=== PATIENT | male | born 1995 | race Caucasian/White ===

== ENCOUNTER → 2021-08-06 | Outpatient (CLI) | payer OTHER ==
--- NOTE | 2021-08-06 13:34 | REPVR ---
PROCEDURE INFORMATION: Exam: CT Maxillofacial Without Contrast Exam date and time: 08/06/2021 1:07 PM Age: 26 years old Clinical indication: Other: Nasal polyp TECHNIQUE: Imaging protocol: Computed tomography images of the face without contrast. Radiation optimization: All CT scans at this facility use at least one of these dose optimization techniques: automated exposure control; mA and/or kV adjustment per patient size (includes targeted exams where dose is matched to clinical indication); or iterative reconstruction. COMPARISON: No relevant prior studies available. FINDINGS: Orbital cavity: Examination reveals bilateral globes to be normal in size and morphology. The optic nerves are normal in thickness and symmetric bilaterally. The extraocular muscles are normal in thickness . The retroconal fat has a normal appearance. The lacrimal glands appear normal bilaterally. Bones/joints: The bony orbital vasquez are intact. No fractures are identified. The visualized osseous structures are unremarkable. No acute fracture or dislocation is seen. Paranasal sinuses: Examination reveals polypoid mucosal thickening involving bilateral maxillary and ethmoid sinuses with mucosal obstruction of bilateral ostiomeatal complex. There is mild mucosal thickening in bilateral frontal and sphenoid sinuses. Soft tissues: Unremarkable. Brain: The visualized brain parenchyma is unremarkable. Nasal cavity: There is polypoid mucosal thickening involving the nasal turbinates bilaterally causing significant narrowing of the nasal airway. These findings are consistent with sinonasal polyposis. There is mild deviation of the nasal septum towards the right. IMPRESSION: 1. Examination reveals polypoid mucosal thickening involving bilateral maxillary and ethmoid sinuses with mucosal obstruction of bilateral ostiomeatal complex. There is mild mucosal thickening in bilateral frontal and sphenoid sinuses. 2. There is polypoid mucosal thickening involving the nasal turbinates bilaterally causing significant narrowing of the nasal airway. These findings are consistent with sinonasal polyposis. There is mild deviation of the nasal septum towards the right. Electronically signed by: Lb Anthony On 08/06/2021 13:33:47 PM
== END ==
LOC: M RAD 13:01
PROVIDERS: ATTEND Otolaryngology
DX: J33.9 Nasal polyp, unspecified (principal)

== ENCOUNTER 2021-10-07 09:25 | Day surgery (SDC) | payer OTHER ==
[~2021-10-07] VITALS: Ht 182.9 cm; Wt 87.0 kg
[~2021-10-07 09:25] MED LIST: LR 1,000 ML IV ONE
--- OUTSIDE RECORDS SUMMARY | 2021-10-07 09:29 | CCD | Continuity of Care Document ---
Author Author Papa SANDOVAL MD Organization Unknown Address [address] [place] [address] [address] [place] [address] Phone [phone] Care Team Providers Care Scientific Investigator Name Role Phone Jonel Gomez P.A.-C. AUTM [phone] Bairon Dixon RPA-C AUTM [phone] Problems Active Problems Provider Date Impacted cerumen Frank Sandoval MD Onset: 07/25/2021 Polyp of nasal cavity and/or nasal sinus Frank Sandoval MD Onset: 07/25/2021 Social History Type Date Description Comments Sex Unknown ETOH Use Occasionally consumes alcohol Tobacco Use Start: Unknown Non Smoker Recreational Drug Use Never Used Drugs Allergies, Adverse Reactions, Alerts Description No Known Drug Allergies Medications Active Medications SIG Qnty Indications Ordering Provide r Date Zyrtec Allergy 10mg Capsules 1 by mouth every day Unknown Fluticasone Propionate 50mcg/Act Suspension 2 sprays to each nostril daily Unknown Immunizations Description No Information Available Vital Signs Date Vital Result Comment 07/25/2021 11:21am BP Systolic 114 mmHg BP Diastolic 80 mmHg Heart Rate 62 /min O2 % BldC Oximetry 98 % Height 72 inches 6'0" Weight 199.00 lb BMI (Body Mass Index) 27.0 kg/m2 [place] Body Weight 178 lb Weight 90.266 kg BSA (Body Surface Area) 2.13 m2 Results Description No Information Available Procedures Date Code Description Status 07/25/2021 27330 Office/Outpatient New Low MDM 30 -44 Minutes Completed 07/25/2021 11281 Remove Impacted Cerumen Complete d Medical Devices Description No Information Available Encounters Type Date Location Provider Dx Diagnosis Office Visit 07/25/2021 11:15a [facility] Camila Cohen J33.9 Nasal polyp, unspecified H61.23 Impacted cerumen, bilateral Assessments Date Code Description Provider 07/25/2021 J33.9 Nasal polyp, unspecified Frank rush MD 07/25/2021 H61.23 Impacted cerumen, bilateral Nino moreno Sandoval MD Plan of Treatment Future Appointment(s):* 08/14/2021 11:00 am - Frank Sandoval MD at [facility] Functional Status Description No Information Available Mental Status Description No Information Available Referrals Refer to Dr Reason for Referral Status Appt Date Frank Sandoval M.D. NASAL CONGESTION Scheduled [address] [address] [phone]
--- OUTSIDE RECORDS SUMMARY | 2021-10-07 09:29 | CCD | Continuity of Care Document ---
Author Author Papa CARDENAS.N .PVilma Organization Unknown Address [address], [address] [place] [address] Phone [phone] Care Team Providers Care Binder Operator Name Role Phone [facility] [phone] Problems Description No Information Available Social History Type Date Description Comments Sex Unknown Tobacco Use Start: Unknown Never Smoked Cigarettes ETOH Use Occasionally consumes alcohol Sun Exposure excessive amount of sun exposure Sun Exposure Has never used tanning bed Sun Exposure Has never experienced blistering from sunburns Sun Exposure Does not use sunscreen Allergies and adverse reactions Description No Known Drug Allergies Medications Description No Active Medications Medications Administered in Office Medication SIG Qnty Indications Ordering Provider Date Injection Intralesional Up To 7 Injection RAGHAV Mejia Injection Intralesional Up To 7 Injection RAGHAV Mejia Injection Intralesional Up To 7 Injection Veena CurrieNVilmaPVilma Immunizations Description No Information Available Vital Signs Date Vital Result Comment 09/18/2021 9:47am BP Systolic 115 mmHg BP Diastolic 65 mmHg O2 % BldC Oximetry 98 % Heart Rate 75 /min 08/07/2021 10:21am BP Systolic 115 mmHg BP Diastolic 73 mmHg O2 % BldC Oximetry 98 % Heart Rate 71 /min Weight 192.00 lb Respiratory Rate 16 /min Height 72 inches 6'0" BMI (Body Mass Index) 26.0 kg/m2 Results Description No Information Available Procedures Date Code Description Status 09/18/2021 60008 Office/Outpatient Established Lo w MDM 20-29 Min Completed 08/07/2021 99266 Office/Outpatient Established Mo d MDM 30-39 Min Completed 08/07/2021 70000 Injection Intralesional Up To 7 Completed 06/20/2021 25812 Office/Outpatient Established Mo d MDM 30-39 Min Completed 06/20/2021 05620 Injection Intralesional Up To 7 Completed 05/13/2021 53587 Office Consultation Level 4 Comp leted 05/13/2021 80873 Injection Intralesional Up To 7 Completed Medical Devices Description No Information Available Encounters Type Date Location Provider Dx Diagnosis Office Visit 09/18/2021 9:45a Main Office Kellie Dudley'travon, F.N.P. L63.8 Other alopecia areata Office Visit 08/07/2021 10:00a Main Office HEMALATHA MejiaP-C L63.8 Other alopecia areata Office Visit 06/20/2021 10:15a Main Office HEMALATHA MejiaP-C L63.8 Other alopecia areata Office Visit 05/13/2021 7:30a Main Office Kellie Dudley'travon, F.N.P. L63.9 Alopecia areata, unspecified L63.8 Other alopecia areata Assessments Date Code Description Provider 09/18/2021 L63.8 Other alopecia areata Kellie Dudley'travon, F.N.P. 08/07/2021 L63.8 Other alopecia areata Ivon Daniels, ENVIRONMENTAL CONSERVATION OFFICER-C 06/20/2021 L63.8 Other alopecia areata Ivon Daniels, ENVIRONMENTAL CONSERVATION OFFICER-C 05/13/2021 L63.9 Alopecia areata, unspecified Cat mai O'travon, F.N.P. 05/13/2021 L63.8 Other alopecia areata Kellie Octavia'travon, F.N.P. Plan of Treatment 09/18/2021 - Kellie O'travon, F.N.P.* L63.8 Other alopecia areata* Comments:* Doing wellContinue to monitor.Call with any problems. * Follow up:* PRN Functional Status Description No Information Available Mental Status Description No Information Available Referrals Refer to Dr Reason for Referral Status Appt Date Gladis Cowan NP [address] [place] [address] [phone]
--- OUTSIDE RECORDS SUMMARY | 2021-10-07 09:29 | CCD ---
Author Author [facility] Organization [facility] Address Unknown Phone Unavailable Care Team Providers Care Rail Layer Name Role Phone Gates, Yesenia RECORD PRESS TENDER Unavailable Unavailable Gates, Yesenia RECORD PRESS TENDER Unavailable Unavailable Gates, Yesenia RECORD PRESS TENDER Unavailable Unavailable Gates, Yesenia RECORD PRESS TENDER Unavailable Unavailable Gates, Yesenia RECORD PRESS TENDER Unavailable Unavailable Gates, Yesenia RECORD PRESS TENDER Unavailable Unavailable Gates, Yesenia RECORD PRESS TENDER Unavailable Unavailable Gates, Yesenia RECORD PRESS TENDER Unavailable Unavailable Gates, Yesenia RECORD PRESS TENDER Unavailable Unavailable Gates, Yesenia RECORD PRESS TENDER Unavailable Unavailable Gates, Yesenia RECORD PRESS TENDER Unavailable Unavailable Gates, Yesenia RECORD PRESS TENDER Unavailable Unavailable Gates, Yesenia RECORD PRESS TENDER Unavailable Unavailable Gates, Yesenia RECORD PRESS TENDER Unavailable Unavailable Gates, Yesenia RECORD PRESS TENDER Unavailable Unavailable Gates, Yesenia RECORD PRESS TENDER Unavailable Unavailable Gates, Yesenia RECORD PRESS TENDER Unavailable Unavailable Gates, Yesenia RECORD PRESS TENDER Unavailable Unavailable Gates, Yesenia RECORD PRESS TENDER Unavailable Unavailable Gates, Yesenia RECORD PRESS TENDER Unavailable Unavailable Gates, Yesenia RECORD PRESS TENDER Unavailable Unavailable Gates, Yesenia RECORD PRESS TENDER Unavailable Unavailable Gates, Yesenia RECORD PRESS TENDER Unavailable Unavailable Gates, Yesenia RECORD PRESS TENDER Unavailable Unavailable Gates, Yesenia RECORD PRESS TENDER Unavailable Unavailable Gates, Yesenia RECORD PRESS TENDER Unavailable Unavailable Gates, Yesenia RECORD PRESS TENDER Unavailable Unavailable Gates, Yesenia RECORD PRESS TENDER Unavailable Unavailable Gates, Yesenia RECORD PRESS TENDER Unavailable Unavailable Gates, Yesenia RECORD PRESS TENDER Unavailable Unavailable Gates, Yesenia RECORD PRESS TENDER Unavailable Unavailable Gates, Yesenia RECORD PRESS TENDER Unavailable Unavailable Gates, Yesenia RECORD PRESS TENDER Unavailable Unavailable Gates, Yesenia RECORD PRESS TENDER Unavailable Unavailable Gates, Yesenia RECORD PRESS TENDER Unavailable Unavailable Gates, Yesenia RECORD PRESS TENDER Unavailable Unavailable Jaime, Valdo Marie PH.D., M.D. Unavailable Unavailable Jaime, Valdo Marie PH.D., M.D. Unavailable Unavailable Jaime, Valdo Marie PH.D., M.D. Unavailable Unavailable Jaime, Valdo Marie PH.D., M.D. Unavailable Unavailable Jaime, Valdo Marie PH.D., M.D. Unavailable Unavailable Jaime, Valdo Marie PH.D., M.D. Unavailable Unavailable Jaime, Valdo Marie PH.D., M.D. Unavailable Unavailable Jaime, Valdo Marie PH.D., M.D. Unavailable Unavailable Jaime, Valdo Marie PH.D., M.D. Unavailable Unavailable Jaime, Valdo Marie PH.D., M.D. Unavailable Unavailable Jaime, Valdo Marie PH.D., M.D. Unavailable Unavailable Jaime, Valdo Marie PH.D., M.D. Unavailable Unavailable Jaime, Valdo Marie PH.D., M.D. Unavailable Unavailable Jaime, Valdo Marie PH.D., M.D. Unavailable Unavailable Jaime, Valdo Marie PH.D., M.D. Unavailable Unavailable Jaime, Valdo Mraie PH.D., M.D. Unavailable Unavailable Jaime, Valdo Marie PH.D., M.D. Unavailable Unavailable Jaime, Valdo Marie PH.D., M.D. Unavailable Unavailable Jaime, Valdo Marie PH.D., M.D. Unavailable Unavailable Jaime, Valdo Marie PH.D., M.D. Unavailable Unavailable Jaime, Valdo Marie PH.D., M.D. Unavailable Unavailable Jaime, Valdo Marie PH.D., M.D. Unavailable Unavailable Jaime, Valdo Marie PH.D., M.D. Unavailable Unavailable Jaime, Valdo Marie PH.D., M.D. Unavailable Unavailable Jaime, Valdo Marie PH.D., M.D. Unavailable Unavailable Jaime, C Frank PH.D., M.D. Unavailable Unavailable Jaime, C Frank PH.D., M.D. Unavailable Unavailable Jaime, C Frank PH.D., M.D. Unavailable Unavailable Jaime, C Frank PH.D., M.D. Unavailable Unavailable Jaime, C Frank PH.D., M.D. Unavailable Unavailable Jaime, C Frank PH.D., M.D. Unavailable Unavailable Jaime, C Frank PH.D., M.D. Unavailable Unavailable Jaime, C Frank PH.D., M.D. Unavailable Unavailable Jaime, C Frank PH.D., M.D. Unavailable Unavailable Jaime, C Frank PH.D., M.D. Unavailable Unavailable Jaime, C Frank PH.D., M.D. Unavailable Unavailable Jaime, C Frank PH.D., M.D. Unavailable Unavailable Jaime, C Frank PH.D., M.D. Unavailable Unavailable Jaime, C Frank PH.D., M.D. Unavailable Unavailable Jaime, C Frank PH.D., M.D. Unavailable Unavailable Jaime, C Frank PH.D., M.D. Unavailable Unavailable Jaime, C Frank PH.D., M.D. Unavailable Unavailable Jaime, C Frank PH.D., M.D. Unavailable Unavailable Jaime, C Frank PH.D., M.D. Unavailable Unavailable Jaime, C Frank PH.D., M.D. Unavailable Unavailable Jaime, C Frank PH.D., M.D. Unavailable Unavailable Jaime, C Frank PH.D., M.D. Unavailable Unavailable Jaime, C Frank PH.D., M.D. Unavailable Unavailable Jaime, C Frank PH.D., M.D. Unavailable Unavailable Jaime, C Frank PH.D., M.D. Unavailable Unavailable Jaime, C Frank PH.D., M.D. Unavailable Unavailable Jaime, C Frank PH.D., M.D. Unavailable Unavailable Jaime, C Frank PH.D., M.D. Unavailable Unavailable Jaime, C Frank PH.D., M.D. Unavailable Unavailable Jaime, C Frank PH.D., M.D. Unavailable Unavailable Jaime, C Frank PH.D., M.D. Unavailable Unavailable Jaime, C Frank PH.D., M.D. Unavailable Unavailable Jaime, C Frank PH.D., M.D. Unavailable Unavailable Jaime, C Frank PH.D., M.D. Unavailable Unavailable Jaime, Valdo Marie PH.D., M.D. Unavailable Unavailable Jaime, Valdo Marie PH.D., M.D. Unavailable Unavailable Jaime, Valdo Marie PH.D., M.D. Unavailable Unavailable Jaime, Valdo Marie PH.D., M.D. Unavailable Unavailable Jaime, Valdo Marie PH.D., M.D. Unavailable Unavailable Jaime, Valdo Marie PH.D., M.D. Unavailable Unavailable Jaime, Valdo Marie PH.D., M.D. Unavailable Unavailable Jaime, Valdo Marie PH.D., M.D. Unavailable Unavailable Jaime, Valdo Marie PH.D., M.D. Unavailable Unavailable Jaime, Valdo Marie PH.D., M.D. Unavailable Unavailable Jaime, Valdo Marie PH.D., M.D. Unavailable Unavailable Jaime, Valdo Marie PH.D., M.D. Unavailable Unavailable Jaime, Valdo Marie PH.D., M.D. Unavailable Unavailable Jaime, Valdo Marie PH.D., M.D. Unavailable Unavailable Jaime, Valdo Marie PH.D., M.D. Unavailable Unavailable Jaime, Valdo Marie PH.D., M.D. Unavailable Unavailable Jaime, Valdo Marie PH.D., M.D. Unavailable Unavailable Jaime, Valdo Marie PH.D., M.D. Unavailable Unavailable Jaime, Valdo Marie PH.D., M.D. Unavailable Unavailable Jaime, Valdo Marie PH.D., M.D. Unavailable Unavailable Jaime, Valdo Marie PH.D., M.D. Unavailable Unavailable Jaime, Valdo Marie PH.D., M.D. Unavailable Unavailable Jaime, Valdo Marie PH.D., M.D. Unavailable Unavailable Hegard, Ivon RECORD PRESS TENDER Unavailable Unavailable Hegard, Ivon RECORD PRESS TENDER Unavailable Unavailable Hegard, Ivon RECORD PRESS TENDER Unavailable Unavailable Hegard, Ivon RECORD PRESS TENDER Unavailable Unavailable Hegard, Ivon RECORD PRESS TENDER Unavailable Unavailable Hegard, Ivon RECORD PRESS TENDER Unavailable Unavailable Hegard, Ivon RECORD PRESS TENDER Unavailable Unavailable Hegard, Ivon RECORD PRESS TENDER Unavailable Unavailable Hegard, Ivon RECORD PRESS TENDER Unavailable Unavailable Hegard, Ivon RECORD PRESS TENDER Unavailable Unavailable Hegard, Ivon RECORD PRESS TENDER Unavailable Unavailable Hegard, Ivon RECORD PRESS TENDER Unavailable Unavailable Hegard, Ivon RECORD PRESS TENDER Unavailable Unavailable Hegard, Ivon RECORD PRESS TENDER Unavailable Unavailable Hegard, Ivon RECORD PRESS TENDER Unavailable Unavailable Hegard, Ivon RECORD PRESS TENDER Unavailable Unavailable Hegard, Ivon RECORD PRESS TENDER Unavailable Unavailable Re-disclosure Warning The records that you are about to access may contain information from federally-assisted alcohol or drug abuse programs. If such information is present, then the following federally mandated warning applies: This information has been disclosed to you from records protected by federal confidentiality rules (42 CFR part 2). The federal rules prohibit you from making any further disclosure of this information unless further disclosure is expressly permitted by the written consent of the person to whom it pertains or as otherwise permitted by 42 CFR part 2. A general authorization for the release of medical or other information is NOT sufficient for this purpose. The Federal rules restrict any use of the information to criminally investigate or prosecute any alcohol or drug abuse patient.The records that you are about to access may contain highly sensitive health information, the redisclosure of which is protected by Article 27-F of the [facility] Public Health law. If you continue you may have access to information: Regarding HIV / AIDS; Provided by facilities licensed or operated by the [facility] Office of Mental Health; or Provided by the [facility] Office for People With Developmental Disabilities. If such information is present, then the following [facility] mandated warning applies: This information has been disclosed to you from confidential records which are protected by state law. State law prohibits you from making any further disclosure of this information without the specific written consent of the person to whom it pertains, or as otherwise permitted by law. Any unauthorized further disclosure in violation of state law may result in a fine or penitentiary sentence or both. A general authorization for the release of medical or other information is NOT sufficient authorization for further disc losure. Encounters Encounter Providers Location Date Indications Data Source(s ) Outpatient Attender: Frank Sandoval PH.D., MEma. Matthew/Pravin/Harinder jay/Trista 08/14/2021 11:00:00 AM EDT [facility] ([facility] [place]) Outpatient Attender: Ivon COLEMAN Main Office 0 08/07/2021 10:00:00 AM EDT [facility] Outpatient Attender: Frank Sandoval PH.Ayush., Camila.D. Matthew/Pravin/Harinder jay/Trista 07/25/2021 11:15:00 AM EDT [facility] ([facility] [place]) Outpatient Attender: Ivon Londonsher [facility] Main Office 0 06/20/2021 10:15:00 AM EDT [facility] ([facility]) Outpatient Attender: Kellie Matt [facility] Main Office 05/13/2021 07:30:00 AM EDT [facility] ([facility]) Immunizations Vaccine Date Status Description Data Source(s) COVID-19 VACCINE Pfizer 04/15/2021 12:00:00 AM EDT completed [id number] Vaccine Series Complete: NOThis Data was Submitted to [facility] [employer]. Medications Medication Brand Name Start Date Product Form Dose Route Admi nistrative Instructions Pharmacy Instructions Status Indications Reaction Description Data Source(s) Injection Intralesional Up To 7 08/07/2021 12:00:00 AM EDT completed [facility] ([facility]) Medication administered onsite Injection Intralesional Up To 7 06/20/2021 12:00:00 AM EDT completed [facility] ([facility]) Medication administered onsite Injection Intralesional Up To 7 05/13/2021 12:00:00 AM EDT completed [facility] ([facility]) Medication administered onsite Insurance Providers Payer name Policy type / Coverage type Policy ID Covered green party ID Covered green party's relationship to valle Policy Valle Plan Information [facility] [employer] [id number] Problems, Conditions, and Diagnoses Code Display Name Description Problem Type Effective Dates Data Source(s) J33.9 Polyp of nasal cavity and/or nasal sinus Polyp of nasal cavity and/or nasal sinus Problem 07/25/2021 12:00:00 AM EDT [facility] H61.23 Impacted cerumen Impacted cerumen Problem 07/25/2021 12 :00:00 AM EDT [facility] ([facility], ) Surgeries/Procedures Procedure Description Date Indications Data Source(s) OFFICE OUTPATIENT VISIT 25 MINUTES 08/14/2021 12:00:00 AM EDT [facility] ([facility], ) INJECTION INTRALESIONAL UP TO & INCLUD 7 LESIONS 08/07 12:00:00 AM EDT [facility] ([facility]) OFFICE OUTPATIENT VISIT 25 MINUTES 08/07/2021 12:00:00 AM EDT [facility] ([facility]) Remove Impacted Cerumen 07/25/2021 12:00:00 AM EDT [facility] ([facility]) OFFICE OUTPATIENT NEW 30 MINUTES 07/25/2021 12:00:00 A M EDT [facility] ([facility]) Endoscopy Nasal Diagnostic 07/25/2021 12:00:00 AM EDT [facility] ([facility]) INJECTION INTRALESIONAL UP TO & INCLUD 7 LESIONS 06/20 12:00:00 AM EDT [facility] ([facility]) OFFICE OUTPATIENT VISIT 25 MINUTES 06/20/2021 12:00:00 AM EDT [facility] ([facility]) INJECTION INTRALESIONAL UP TO & INCLUD 7 LESIONS 05/13 12:00:00 AM EDT [facility] ([facility]) OFFICE CONSULTATION NEW/ESTAB PATIENT 60 MIN 12:00:00 AM EDT [facility] ([facility]) Results ID Date Data Source [id number] 07/01/2021 02:25:00 PM EDT [facility] Name Value Range Interpretation Code Description Data Lien rce(s) Supporting Document(s) SARS coronavirus 2 RNA Not Detected [facility] [place] This lab was ordered by [facility] and reported by [facility]. Procedure Social History No Information Vital Signs ID Date Data Source UNK Name Value Range Interpretation Code Description Data Source(s) Diastolic blood pressure 68 mm[Hg] 68 mm[Hg] [facility] ([facility]) Heart rate 94 /min 94 /min [facility] ([facility]) Oxygen saturation in Arterial blood by Pulse oximetry 97 % 97 % [facility] ([facility]) Systolic blood pressure 124 mm[Hg] 124 mm[Hg] [facility] ([facility]) Body height 72 [in_i] 72 [in_i] [facility] ([facility]) 6'0" Body weight 199.00 [lb_av] 199.00 [lb_av] [facility] ([facility]) Body mass index (BMI) [Ratio] 27.0 kg/m2 27.0 k g/m2 [facility] ([facility]) [place] body weight 178 [lb_av] 178 [lb_av] [facility] T ([facility]) Body weight 90.266 kg 90.266 kg [facility] ([facility]) Body surface area Derived from formula 2.13 m2 2.13 m2 [facility] ([facility]) Body mass index (BMI) [Ratio] 26.0 kg/m2 26.0 k g/m2 [facility] ([facility]) Body height 72 [in_i] 72 [in_i] [facility] ([facility]) 6'0" Respiratory rate 16 /min 16 /min [facility] ( [facility]) Systolic blood pressure 115 mm[Hg] 115 mm[Hg] M [facility] ([facility]) Diastolic blood pressure 73 mm[Hg] 73 mm[Hg] [facility] ([facility]) Oxygen saturation in Arterial blood by Pulse oximetry 98 % 98 % [facility] ([facility]) Heart rate 71 /min 71 /min [facility] ([facility] Body weight 192.00 [lb_av] 192.00 [lb_av] MED[facility] T ([facility]) Body weight 199.00 [lb_av] 199.00 [lb_av] [facility] T ([facility]) Body mass index (BMI) [Ratio] 27.0 kg/m2 27.0 k g/m2 [facility] ([facility]) Body height 72 [in_i] 72 [in_i] [facility] ([facility]) 6'0" [place] body weight 178 [lb_av] 178 [lb_av] MED[facility] T ([facility]) Body weight 90.266 kg 90.266 kg [facility] ([facility]) Body surface area Derived from formula 2.13 m2 2.13 m2 [facility] ([facility]) Heart rate 62 /min 62 /min [facility] ([facility]) Oxygen saturation in Arterial blood by Pulse oximetry 98 % 98 % [facility] ([facility]) Systolic blood pressure 114 mm[Hg] 114 mm[Hg] [facility] ([facility], ) Diastolic blood pressure 80 mm[Hg] 80 mm[Hg] [facility] ([facility], ) Body weight 194.00 [lb_av] 194.00 [lb_av] MED[facility] T ([facility]) Body temperature 97.2 [degF] 97.2 [degF] [facility] ([facility]) Systolic blood pressure 127 mm[Hg] 127 mm[Hg] [facility] ([facility]) Diastolic blood pressure 68 mm[Hg] 68 mm[Hg] [facility] ([facility]) Body weight 194.00 [lb_av] 194.00 [lb_av] MED[facility] T ([facility]) Body temperature 97.2 [degF] 97.2 [degF] [facility] ([facility]) Diastolic blood pressure 80 mm[Hg] 80 mm[Hg] [facility] ([facility]) Systolic blood pressure 126 mm[Hg] 126 mm[Hg] [facility] ([facility]) Body weight 195.00 [lb_av] 195.00 [lb_av] MEDEN T ([facility]) Respiratory rate 18 /min 18 /min [facility] ( [facility])
--- OUTSIDE RECORDS SUMMARY | 2021-10-07 09:29 | CCD | Continuity of Care Document ---
Author Author Papa SANDOVAL MD Organization Unknown Address [address] [place] [address] Phone [phone] Care Team Providers Care Street And Building Decorator Name Role Phone Jonel Gomez P.A.-C. AUTM [phone] Bairon Dixon RPA-C AUTM [phone] Problems Active Problems Provider Date Impacted cerumen [...] Available Vital Signs Date Vital Result Comment 08/14/2021 11:04am BP Systolic 124 mmHg BP Diastolic 68 mmHg Heart Rate 94 /min O2 % BldC Oximetry 97 % Height 72 inches 6'0" Weight 199.00 lb BMI (Body Mass Index) 27.0 kg/m2 [place] Body Weight 178 lb Weight 90.266 kg BSA (Body Surface Area) 2.13 m2 07/25/2021 11:21am BP Systolic 114 mmHg BP Diastolic 80 mmHg Heart Rate 62 /min O2 % BldC Oximetry 98 % Height 72 inches 6'0" Weight 199.00 lb BMI (Body Mass Index) 27.0 kg/m2 [place] Body Weight 178 lb Weight 90.266 kg BSA (Body Surface Area) 2.13 m2 Results Description No Information Available Procedures Date Code Description Status 08/14/2021 84102 Office/Outpatient Established Mo d MDM 30-39 Min Completed 07/25/2021 85366 Office/Outpatient New Low MDM 30 -44 Minutes Completed 07/25/2021 45686 Remove Impacted Cerumen Complete d Medical Devices Description No Information Available Encounters Type Date Location Provider Dx Diagnosis Office Visit 08/14/2021 11:00a [facility] Camila Cohen J33.9 Nasal polyp, unspecified Office Visit 07/25/2021 11:15a [facility] Camila Cohen J33.9 Nasal polyp, unspecified H61.23 Impacted cerumen, bilateral Assessments Date Code Description Provider 08/14/2021 J33.9 Nasal polyp, unspecified Frank rush MD 07/25/2021 J33.9 Nasal polyp, unspecified Frank rush MD 07/25/2021 H61.23 Impacted cerumen, bilateral Nino moreno Sandoval MD Plan of Treatment No Information Available Functional Status Description No Information Available Mental Status Description No Information Available Referrals Refer to Dr Reason for Referral Status Appt Frank Sandoval M.D. NASAL CONGESTION Scheduled [address] [address] [phone]
--- OUTSIDE RECORDS SUMMARY | 2021-10-07 09:29 | CCD | Continuity of Care Document ---
Author Author Papa SANDOVAL MD Organization Unknown Address [address] [place] [address] Phone [phone] Care Team Providers Care Assistant Prosecuting Attorney Name Role Phone Jonel Gomez P.A.-C. AUTM [phone] Bairon Dixon RPA-C AUTM [phone] Problems Active Problems Provider Date Impacted cerumen [...] lb BMI (Body Mass Index) 27.0 kg/m2 [place] Body Weight 178 lb Weight 90.266 kg BSA (Body Surface Area) 2.13 m2 07/25/2021 11:21am BP Systolic 114 mmHg BP Diastolic 80 mmHg Heart Rate 62 /min O2 % BldC Oximetry 98 % Height 72 inches 6'0" Weight 199.00 lb BMI (Body Mass Index) 27.0 kg/m2 [place] Body Weight 178 lb Weight 90.266 kg BSA (Body Surface Area) 2.13 m2 Results Description No Information Available Procedures Date Code Description Status 07/25/2021 54234 Office/Outpatient New Low MDM 30 -44 Minutes Completed 07/25/2021 36228 Remove Impacted Cerumen Complete d Medical Devices Description No Information Available Encounters Type Date Location Provider Dx Diagnosis Office Visit 07/25/2021 11:15a [facility] Camila Cohen J33.9 Nasal polyp, unspecified H61.23 Impacted cerumen, bilateral Assessments Date Code Description Provider 08/14/2021 J33.9 Nasal polyp, unspecified Frank rush MD 07/25/2021 J33.9 Nasal polyp, unspecified Frank rush MD 07/25/2021 H61.23 Impacted cerumen, bilateral Nino moreno Sandoval MD Plan of Treatment 08/14/2021 - Frank Sandoval MD* J33.9 Nasal polyp, unspecified* Comments:* We discussed the CT findings with Papa today. We discussed continued medical ma nagement versus surgical intervention. We reviewed the risks and benefits and all questions were answered. He indicated that like he would to proceed with surgical intervention. They will avoid any NSAID type products and Multivite for 2 weeks prior to the procedure. We will arrange this in the near future. As soon as schedule permits. Functional Status Description No Information Available Mental Status Description No Information Available Referrals Refer to Reason for Referral Status Appt Date Frank Sandoval M.D. NASAL CONGESTION Scheduled [address] [address] [phone]
--- OUTSIDE RECORDS SUMMARY | 2021-10-07 09:29 | CCD | Continuity of Care Document ---
Author Author Papa SANDOVAL MD Organization Unknown Address [address] [place] [address] [address] [place] [address] Phone [phone] Care Team Providers Care Studio Operation Engineer Name Role Phone Jonel Gomez P.A.-C. AUTM [phone] Destiny Baironjuan Alcala RPA-C AUTM [phone] Problems Active Problems Provider Date Impacted cerumen [...] lb BMI (Body Mass Index) 27.0 kg/m2 [place] Body Weight 178 lb Weight 90.266 kg BSA (Body Surface Area) 2.13 m2 Results Description No Information Available Procedures Description No Information Available Medical Devices Description No Information Available Encounters Description No Information Available Assessments Date Code Description Provider 07/25/2021 J33.9 Nasal polyp, unspecified Frank rush MD 07/25/2021 H61.23 Impacted cerumen, bilateral Nino Sandoval MD Plan of Treatment 07/25/2021 - Frank Sandoval MD* J33.9 Nasal polyp, unspecified* Comments:* I was able to see nasal polyps upon examination. We will order a CT and follow up with him regarding the results. He is happy to follow this plan. * H61.23 Impacted cerumen, bilateral* Comments:* This was removed today in office. I am happy to see him back if this occurs in the future. Functional Status Description No Information Available Mental Status Description No Information Available Referrals Refer to Reason for Referral Status Appt Date Frank Sandoval M.D. NASAL CONGESTION Scheduled [address] [address] [phone]
--- OUTSIDE RECORDS SUMMARY | 2021-10-07 09:29 | CCD | Continuity of Care Document ---
Author Author Papa DE GUZMAN Organization Unknown Address [address], [address] [place] [address] Phone [phone] Care Team Providers Care Char Filter Tank Tender Head Name Role Phone [facility] [phone] Problems Description No Information Available Social History Type Date Description Comments Sex Unknown Tobacco Use Start: Unknown Never Smoked Cigarettes ETOH Use Occasionally consumes alcohol Sun Exposure excessive amount of sun exposure Sun Exposure Has never used tanning bed Sun Exposure Has never experienced blistering from sunburns Sun Exposure Does not use sunscreen Allergies, Adverse Reactions, Alerts Description No Known Drug Allergies Medications Description No Active Medications Medications Administered in Office Medication SIG Qnty Indications Ordering Provider Date Injection Intralesional Up To 7 Injection RAGHAV Mejia Injection Intralesional Up To 7 Injection RAGHAV Mejia Injection Intralesional Up To 7 Injection Veena CurrieNVilmaPVilma Immunizations Description No Information Available Vital Signs Date Vital Result Comment 08/07/2021 10:21am BP Systolic 115 mmHg BP Diastolic 73 mmHg O2 % BldC Oximetry 98 % Heart Rate 71 /min Weight 192.00 lb Respiratory Rate 16 /min Height 72 inches 6'0" BMI (Body Mass Index) 26.0 kg/m2 06/20/2021 10:35am BP Systolic 127 mmHg BP Diastolic 68 mmHg Weight 194.00 lb Body Temperature 97.2 F Results Description No Information Available Procedures Date Code Description Status 08/07/2021 83299 Office/Outpatient Established Mo d MDM 30-39 Min Completed 08/07/2021 03886 Injection Intralesional Up To 7 Completed 06/20/2021 66956 Office/Outpatient Established Mo d MDM 30-39 Min Completed 06/20/2021 63289 Injection Intralesional Up To 7 Completed 05/13/2021 83780 Office Consultation Level 4 Comp leted 05/13/2021 07675 Injection Intralesional Up To 7 Completed Medical Devices Description No Information Available Encounters Type Date Location Provider Dx Diagnosis Office Visit 08/07/2021 10:00a Main Office RAGHAV Mejia L63.8 Other alopecia areata Office Visit 06/20/2021 10:15a Main Office [place] Mejia-Valdo L63.8 Other alopecia areata Office Visit 05/13/2021 7:30a Main Office Kellie Rosales, F.N.P. L63.9 Alopecia areata, unspecified L63.8 Other alopecia areata Assessments Date Code Description Provider 08/07/2021 L63.8 Other alopecia areata RAGHAV Mejia 06/20/2021 L63.8 Other alopecia areata [place] Mejia-Valdo 05/13/2021 L63.9 Alopecia areata, unspecified Cat mai Rosales, F.N.P. 05/13/2021 L63.8 Other alopecia areata Kellie Rsoales, F.N.P. Plan of Treatment Future Appointment(s):* 09/18/2021 9:45 am - RAGHAV Mejia at Main Office 08/07/2021 - RAGHAV Mejia* L63.8 Other alopecia areata* Comments:* Improving.Injected 10 mg/ml of Kenalog today 0.05 cc total. Papa tolerated procedure well. Call with problems * Follow up:* 4 - 6 week Alopecia follow up Functional Status Description No Information Available Mental Status Description No Information Available Referrals Refer to Reason for Referral Status Appt Date Gladis Cowan NP [address] [place] [address] [phone]
--- OUTSIDE RECORDS SUMMARY | 2021-10-07 09:29 | CCD | Continuity of Care Document ---
Author Author Papa SANDOVAL MD Organization Unknown Address [address] [place] [address], [address] [place] [address] Phone [phone] Care Team Providers Care Correctional Treatment Specialist Name Role Phone Jonel Gomez P.A.-C. AUTM [phone] Bairon Dixon RPA-C AUTM [phone] Problems Active Problems Provider Date Impacted cerumen [...] lb BMI (Body Mass Index) 27.0 kg/m2 [place] Body Weight 178 lb Weight 90.266 kg BSA (Body Surface Area) 2.13 m2 Results Description No Information Available Procedures Date Code Description Status 07/25/2021 96263 Office/Outpatient New Low MDM 30 -44 Minutes Completed 07/25/2021 99552 Remove Impacted Cerumen Complete d 07/25/2021 22135 Endoscopy Nasal Diagnostic Compl eted Medical Devices Description No Information Available Encounters Type Date Location Provider Dx Diagnosis Office Visit 07/25/2021 11:15a [facility] Kavitha Cohen J33.9 Nasal polyp, unspecified H61.23 Impacted cerumen, bilateral Assessments Date Code Description Provider 07/25/2021 J33.9 Nasal polyp, unspecified Frank rush MD 07/25/2021 H61.23 Impacted cerumen, bilateral Nino moreno Sandoval MD Plan of Treatment Future Appointment(s):* 08/14/2021 11:00 am - Frank Sandoval MD at [facility] Functional Status Description No Information Available Mental Status Description No Information Available Referrals Refer to Dr Reason for Referral Status Appt Frank Sandoval M.D. NASAL CONGESTION Scheduled [address] [address] [phone]
[2021-10-07] MEDS ORDERED: COCAINE 4% 4ML NASAL SOLUTION BTL As Ordered ONE (09:54)
[2021-10-07] MEDS ORDERED: LIDOCAINE W/EPINEPHRINE 1% 20ML VIAL As Ordered ONE (09:55)
[2021-10-07] MEDS ORDERED: OXYMETAZOLINE 0.05% NASAL SPRAY (AFRIN) As Ordered ONE (09:55)
[2021-10-07] MEDS ORDERED: METHYLENE BLUE 0.5% (5MG/ML) 10 ML AMP (PROVAYBLUE) As Ordered ONE (11:43)
[2021-10-07] MEDS ORDERED: MIDAZOLAM INJ 2MG/2ML VIAL (J2250 PER 1MG) As Ordered ONE (11:51)
[2021-10-07] MEDS ORDERED: dexameTHASONE 4 MG/ML 1ML VIAL (J1100 PER 1MG) As Ordered ONE (11:51)
[2021-10-07] MEDS ORDERED: LIDOCAINE 2% 100MG/5ML SDV (FOR ANES.) As Ordered ONE (11:51)
[2021-10-07] MEDS ORDERED: ROCURONIUM BROMIDE 50 MG/5 ML VIAL As Ordered ONE (11:51)
[2021-10-07] MEDS ORDERED: fentaNYL 100 MCG/2 ML INJECTION (J3010) As Ordered ONE (11:51)
[2021-10-07] MEDS ORDERED: HYDROmorphone HCL 2 MG/ML 1ML VIAL As Ordered ONE (11:51)
[2021-10-07] MEDS ORDERED: propofoL 200 MG/20 ML VIAL As Ordered ONE (11:51)
[2021-10-07] MEDS ORDERED: SUGAMMADEX SODIUM 500 MG/5 ML VIAL (BRIDION) As Ordered ONE (11:51)
[2021-10-07] MEDS ORDERED: ONDANSETRON 4MG/2ML VIAL As Ordered ONE (11:51)
[2021-10-07] MEDS ORDERED: ESMOLOL INJ 100MG/10ML VIAL As Ordered ONE (13:13)
[2021-10-07] MEDS ORDERED: fentaNYL 100 MCG/2 ML INJECTION (J3010) IV PRN (14:25)
[2021-10-07] MEDS ORDERED: METOCLOPRAMIDE INJ 10MG/2ML VIAL (J2765 PER 1) IV PRN (14:25)
[2021-10-07] MEDS ORDERED: LR 1,000 ML IV SCH ×2 (14:25)
[2021-10-07] MEDS ORDERED: ONDANSETRON 4MG/2ML VIAL IV PRN ×2 (14:25→14:30)
[2021-10-07] MEDS ORDERED: PERCOCET 5MG/325MG TAB PO PRN (14:25)
[2021-10-07] MEDS ORDERED: MORPHINE 2 MG/ML 1ML VIAL (J2270) IV PRN (14:30)
[2021-10-07] MEDS ORDERED: ANEXSIA, NORCO 7.5MG/325MG TABLET(HYDROCODONE/APAP) PO PRN (14:30)
--- NOTE | 2021-10-07 14:38 | ROOPDOC ---
[facility] Report Of Operation Report of Operation DATE OF PROCEDURE: 10/07/21 PREPROCEDURE DIAGNOSES: Chronic sinusitis, nasal polyposis. POSTPROCEDURE DIAGNOSES: Same PROCEDURE PERFORMED: Bilateral intranasal image guided maxillary antrostomies with removal of tissue, bilateral image guided total ethmoidectomy, bilateral image guided frontal sinusotomies with removal of tissue, SURGEON: MD Jaime CURRICULUM MANAGER: Tamika, ANESTHESIA: General. ESTIMATED BLOOD LOSS: Approximately 2 7 mL. COMPLICATIONS: None. REMARKS: . FINDINGS: SPECIMENS REMOVED: Right and left sinus contents PROCEDURE NOTE: . Patient was seen in the office and diagnosed with the above condition. The decision was made in consultation with the patient after explanation of risks and benefits to undergo the above-named procedure. The patient was admitted through same-day surgery program and taken to the operating room where she was administered a general anesthetic by intravenous injection. The patient was then intubated endotracheally. The nose was decongested with 4 mL of 4% cocaine solution. A CT scan was done prior to the procedure, the images were reconstructed into 3- dimensional display that was used at the time of surgery for image localization. This was necessary because of the frontal disease. The image guided array was placed on the forehead. The patient was draped in the usual fashion. The fiducial points were entered in the computer and excellent accuracy was obtained. The pledgets were removed from the left side of the nose and the 4 mm endoscope was inserted. The root of middle turbinate and used and it were visualized. Polyps were emanating from the middle meatus. These were injected with 1% lidocaine with epinephrine. Using the [place] elevator. The use and it was incised vertically. This was removed with a Lawrence forceps. The curved tracking suction was used to identify the maxillary sinus ostium. This was enlarged with the backbiting forceps with the microdebrider. Debris was removed inferiorly and from the sinus itself with the curved suction. We then used the image guided microdebrider to enter the ethmoid bulla. We cleaned out the anterior ethmoid air cells with the image guided microdebrider and the Lawrence forcep. We penetrated through the ground lamella and cleaned out the posterior ethmoid air cells in a similar fashion. Using the curved tracking suction D&C. Ethmoid cells were removed in a posterior to anterior fashion taking care to avoid the cribriform plate. Using the frontal sinus seeker. We identified the frontal recess. The balloon was passed up into the frontal sinus and the ostium was dilated. We then irrigated thoroughly. The balloon was removed and additional tissue was removed from the frontal recess, taking care to avoid the cribriform plate area. Afrin soaked strip gauze was then placed on this side of the nose and we moved to the right side. The pledgets were removed from the right side of the nose and the 4 mm endoscope was inserted. The root of the middle turbinate and use and it were visualized. These were injected with 1% lidocaine and epinephrine. Using the [place] elevator the use and it was incised vertically. This was removed from the Lawrence forceps. The curved tracking suction was used to identify the maxillary sinus ostium. This was enlarged with the backbiting forceps with the microdebrider. Debris was removed inferiorly and from the sinus itself with a curved suction. We then used the image guided microdebrider to enter the ethmoid bulla. We cleaned out the anterior ethmoid air cells with the image guided microdebrider and the Lawrence forceps. We penetrated through the ground lamella and cleaned out the posterior ethmoid air cells in a similar fashion. Using the curved tracking suction D&C. Ethmoid cells were removed in a posterior to anterior fashion taking care to avoid the cribriform plate. Using the frontal sinus seeker. We identified the frontal recess. The balloon was passed up into the frontal sinus and the ostium was dilated. We then irrigated thoroughly. The balloon was removed and additional tissue was removed from the frontal recess, taking care to avoid the cribriform plate area. Afrin soaked strip gauze was then placed on this side. The packing was once again removed from the right side of the nose and the middle turbinate examined, this was found to be atrophic and unstable. Decision was made to resected those with the curved turbinate scissor. We then placed FloSeal on the side of the nose we moved to the left side of the nose. The packing was removed. The turbinate was examined on this side this was found to be stable. FloSeal was placed on this side of the nose as well. A mustache dressing was placed under the nose. The patient was allowed to recover from the anesthetic and taken to postanesthesia care in stable condition. There were no complications during this procedure. DESCRIPTION OF PROCEDURE: . Frank Sandoval MD Oct 07, 2021 14:38
[2021-10-07 16:10] VITALS: BP 164/90
== END 2021-10-07 16:50 | disposition home or self-care (01) ==
LOC: M SDC 09:25
PROVIDERS: ATTEND Otolaryngology
DX: J31.0 Chronic rhinitis (principal); J33.9 Nasal polyp, unspecified
CPT/HCPCS: 31255; 31267; 88305; C9046; J1100; J1170; J2250; J2405; J3010; Q9968